=== PATIENT | male | born 1955 | race Caucasian/White ===

== ENCOUNTER 2023-01-03 20:51 | Emergency (ER) | payer SELFPAY ==
[~2023-01-03] VITALS: Ht 188 cm; Wt 82.0 kg
[2023-01-03] MEDS ORDERED: LORAZEPAM 1MG TABLET PO ONE (23:45)
[2023-01-04 00:45] VITALS: BP 123/69
== END 2023-01-04 00:58 | disposition home or self-care (01) ==
LOC: ER 20:51
DX: G92.9 Unspecified toxic encephalopathy (principal)
CPT/HCPCS: 99283